=== PATIENT | female | born 1995 | race Caucasian/White ===

== ENCOUNTER 2020-12-18 04:34 | Emergency (ER) | payer OTHER ==
[2020-12-18 05:16] LABS: BILIRUBIN NEGATIVE (NEGATIVE); BLOOD TRACE-INTACT Ery/uL (NEGATIVE); CLARITY CLEAR (CLEAR); COLOR YELLOW (YELLOW); GLUCOSE (U) 2+ mg/dL (NORMAL); LEUKOCYTES NEGATIVE Leu/uL (NEGATIVE); NITRITE NEGATIVE (NEGATIVE); PROTEIN NEGATIVE (NEGATIVE); UROBILINOGEN 0.2 mg/dL (0.2-1.0)
[2020-12-18] MEDS ORDERED: [UNRECOGNIZED DRUG - OTHER] (05:17)
[2020-12-18] MEDS ORDERED: CEFDINIR300 M1 PO (05:18)
[2020-12-18] MEDS ORDERED: HUMALOG100 UNIT/3 SC (05:19)
[2020-12-18] MEDS ORDERED: TRESIBA FL200 UNIT/1 SC (05:19)
[2020-12-18 05:26] LABS: BASOPHIL 0.2 % (0-2); EOSINOPHIL 0 % (0-5); HCT 36.4 % (37.0-47.0); HGB 11.8 g/dl (12.5-16.0); LYMPHOCYTE 9.3 % (15-48); MCHC 32.4 g/dL (32.0-36.0); MCV 89.4 fL (78.0-100.0); MONOCYTE 8.3 % (0-12); MPV 11.1 fL (6.0-9.5); NEUTROPHIL 81.8 % (41-80); NRBC 0; PLT 185 K/uL (150-400); RBC 4.07 M/uL (4.20-5.40); RDW 13.5 % (11.5-14.0); WBC 11.3 K/uL (4.0-10.5)
[2020-12-18 06:26] LABS: ALBUMIN 2.9 g/dL (3.4-5.0); BILIRUBIN - TOTAL 0.4 mg/dL (0.2-1.0); BUN/CREAT RATIO (CALC) 13.2 RATIO; CREATININE 0.53 mg/dL (0.51-0.95); GLOBULIN (CALCULATION) 4.3 g/dL; TOTAL PROTEIN 7.2 g/dL (6.4-8.2)
[2020-12-18 06:31] LABS: LACTIC ACID 1.2 mmol/L (0.4-1.9)
[2020-12-18] MEDS ORDERED: ONDANSETRON ODT4 MG SL (07:25)
[2020-12-18] MEDS ORDERED: NORCO 5-325 TA1 EACH PO (07:25)
== END 2020-12-18 08:09 | disposition home or self-care (01) ==
LOC: FER 04:34
PROVIDERS: Emergency Medicine Emergency Medical Services
DX: R10.32 Left lower quadrant pain (principal); E10.65 Type 1 diabetes mellitus with hyperglycemia; Z88.0 Allergy status to penicillin
CPT/HCPCS: 36415; 36600; 74018; 80053; 81001; 82009; 82803; 83605; 84145; 85025; 87040; 87088; 93005; J0696; J1885; J2270; J2405; J7030